=== PATIENT | male | born 1965 | race Two or more races ===

== ENCOUNTER 2020-10-30 10:03 | Emergency (ER) | payer OTHER ==
[2020-10-30 10:24] VITALS: BP 141/82
--- NOTE | 2020-10-30 10:49 | ED Physician Documentation ---
PD HPI OPHTHO - Stated complaint Stated Complaint: LT EYE SWELLING - Chief complaint Chief Complaint: Heent - History obtained from History obtained from: Patient - History of Present Illness Timing - onset: How many days ago (2) Timing - duration: Days (2) Timing - details: Gradual onset (started with irritation of left eye, not aware of FB nor injury per se. Has increased redness and now crusting today.), Still present (worse today with crusting and swelling) Location: Left. No: Both Associated symptoms: Redness, Swelling, Discharge. No: FB sensation, Photophobia, Loss of vision Contributing factors: No: Recent URI, FB, Wears contacts Similar symptoms before: Has not had sx before Recently seen: Not recently seen Review of Systems Constitutional: denies: Fever Eyes: reports: Discharge, Irritation. denies: Photophobia Nose: denies: Rhinorrhea / runny nose, Congestion Throat: denies: Sore throat Respiratory: denies: Cough Skin: denies: Rash, Lesions PD PAST MEDICAL HISTORY - Past Medical History Cardiovascular: None Respiratory: None Neuro: None Endocrine/Autoimmune: None - Present Medications Home Medications: Ambulatory Orders Medication Instructions Recorded Confirmed Ketotifen Fumarate [[place]] 2 drops EACHEYE QID 5 Days #5 ml 10/30/20 Sulfacetamide Sodium 3 drops LEFTEYE QID 5 Days #15 ml 10/30/20 - Allergies Allergies/Adverse Reactions: Allergies Allergy/AdvReac Type Severity Reaction Status Date / Time No Known Drug Allergies Allergy Verified 10/30/20 10:24 PD ED PE NORMAL - Vitals Vital signs reviewed: Yes - General General: Alert and oriented X 3, No acute distress, Well developed/nourished - HEENT HEENT: PERRL, EOMI, Ears normal, Pharynx benign, Other (left eye with conjunctival redness and some discharge. Normal anterior and posterior chambers. No FB seen. No dye uptake. ) Results - Vitals Vitals: Oxygen O2 Source Room air PD MEDICAL DECISION MAKING - ED course Complexity details: considered differential, d/w patient Departure - Departure Disposition: 01 Home, Self Care Clinical Impression: Conjunctivitis, acute Qualifiers: Acute conjunctivitis type: bacterial Laterality: left Qualified Code(s): H10.32 - Unspecified acute conjunctivitis, left eye Condition: Stable Record reviewed to determine appropriate education?: Yes Instructions: ED Conjunctivitis Bacterial Prescriptions: Ketotifen Fumarate [[place]] 2 drops EACHEYE QID 5 Days #5 ml Sulfacetamide Sodium 3 drops LEFTEYE QID 5 Days #15 ml Comments: Does seem likely infectious conjunctivitis at this point. It may have started with an irritation. As such we will treated with both an antihistamine eyedrops and antibiotic eyedrops 4 times daily for the next several days. You can start with both eyes for the first day or so and then primarily the left eye for up to 4 to 5 days. I would anticipate feeling a lot better over the next couple of days and resolved by 2 to 3 days. Recheck if not better in that timeframe. Discharge Date/Time: 10/30/20 11:19
--- NOTE | 2020-10-30 13:32 | ED Physician Documentation ---
ED Addendum - Addendum Addendum: 10/30/20 13:31 Eye drop not available. Auth chg to erythromycin oint 5 times a day for 5 days.
== END 2020-10-30 11:19 | disposition home or self-care (01) ==
LOC: ED 10:03
DX: H10.32 Unspecified acute conjunctivitis, left eye (principal)
CPT/HCPCS: 99282; 99283